=== PATIENT | female | born 1950 | race Caucasian/White ===

== ENCOUNTER 2022-11-05 10:48 | Outpatient (CLI) | payer MEDICARE, BC, SELFPAY ==
--- NOTE | 2022-11-05 11:15 | CRLHL7_ITS ---
For Patients: As a result of the Century Cures Act, medical imaging exams and procedure reports are released immediately into your electronic medical record. You may view this report before your referring provider. If you have questions, please contact your health care provider. Indication: Metastatic thyroid cancer Technique: AP pelvis and two views right hip Comparison: CT-PET 09/16/2022 Findings: There is a lytic lesion within the left iliac wing measuring 2.9 cm. A subtle lytic lesion is noted within the medial right femoral head measuring 9 millimeters. Spurring at the greater trochanter on the right noted. Vascular calcifications are present. Additional subtle lytic lesion within the right acetabulum measuring 12 millimeters. Lytic lesion within the right side of the sacrum is partially obscured by overlying bowel gas. Impression: Multifocal lytic lesions, the largest is located within the left iliac wing. No pathologic fracture. Dictated by Gumaro Correa MD @ 11/05/2022 12:45:30 PM (Electronically Signed)
== END 2022-11-05 10:49 | disposition home or self-care (01) ==
PROVIDERS: Visit Provider Nurse Practitioner
DX: C73 Malignant neoplasm of thyroid gland (principal); C79.51 Secondary malignant neoplasm of bone
CPT/HCPCS: 73502

== ENCOUNTER 2022-12-11 12:50 | Outpatient (CLI) | payer MEDICARE, BC, SELFPAY | END 2022-12-11 12:51 | disposition home or self-care (01) | LOC: MRI 12:52 | PROVIDERS: Visit Provider Internal Medicine | DX: C79.31 Secondary malignant neoplasm of brain (principal) | CPT/HCPCS: 70553; A9575 ==

== ENCOUNTER 2023-02-18 10:00 | Outpatient (CLI) | payer MEDICARE, BC, SELFPAY | END 2023-02-18 10:01 | disposition home or self-care (01) | LOC: MRI 10:01 | PROVIDERS: Visit Provider Internal Medicine | DX: C79.31 Secondary malignant neoplasm of brain (principal) | CPT/HCPCS: 70553; A9575 ==